=== PATIENT | female | born 1975 | race Caucasian/White ===

== ENCOUNTER 2022-09-10 07:30 | Day surgery (SDC) | payer BC, SELFPAY ==
[2022-09-10] VITALS (14 sets, daily range): BP systolic 114–144; BP diastolic 71–99; PULSE 68–112; RESP 12–19; TEMP 36.4–36.6; O2SAT 93–99; BMI 28.1
[2022-09-10] MEDS: LACTATED RINGERS 1000 ML 1,000 ML 100 ML IV (07:00)
[2022-09-10 08:05] LABS: HCG Qualitative* Negative (Negative)
[2022-09-10] MEDS: SODIUM CHLORIDE 0.9 % (FLUSH) 10 ML SYRINGE IVF (08:14)
[2022-09-10] MEDS: MIDAZOLAM HCL 1 MG/ML inj IVP (09:01)
[2022-09-10] MEDS: fentaNYL 100 MCG/2 ML inj IVP (09:01)
--- NOTE | 2022-09-10 09:08 | SUR.PREOP ---
TIME?OUT:?0900 PT/RN/MDA?VERIFICATION?OF?SURGICAL?SITE Right Shoulder,?PROCEDURE Nerve Block,?AND?CONSENT OBTAINED?PRIOR?TO?INVASIVE?PROCEDURE.
--- NOTE | 2022-09-10 09:08 | W.PM.NB ---
Nerve Block Nerve Block Time Seen by Provider: 09:03 Date Seen: 09/10/22 Type of block requested by surgeon for post-operative analgesia: supraclavicular Side: right Time out performed: Yes Verification of patient name: Yes Verification of date of : Yes Site marking: site marked Name of person performing procedure: Mike Continuous monitoring Was continuous monitoring of O2 sat, B/P, buggy ladle tender, recorded every 15 minutes?: Yes Procedure Checklist: sterile prep, needles and gloves Ultrasound guided. Images saved: Yes Medications given in 5ml increments after negative aspiration: Ropivicaine %: 0.5 mL: 20 Needle gauge: 22 Decadron (mg): 10 Precedex (mcg): 25 Patient tolerated procedure well: Yes Block Charges Block Charge (with Pro Fee): Brachial Plexus Use of Ultrasound Machine for Block: Yes- US Guidance/pain block
[2022-09-10] MEDS: CEFAZOLIN 2 GM in 0.9 % SODIUM CHLORIDE Mini-bag 100 ML IVPB (10:37)
[2022-09-10] MEDS: EPINEPHrine 1 MG in SODIUM CHLORIDE IRRIG SOLUTION 3,000 ML 15005 MG IRRIGATION (10:58)
--- NOTE | 2022-09-10 12:16 | P.ORPRC_ITS ---
Procedure Note Date of procedure: 09/10/22 Procedure: PREOPERATIVE DIAGNOSES: 1. Right shoulder rotator cuff tear. 2. Right shoulder AC degenerative joint disease, primary, moderate-severe 3. Right shoulder long head of biceps partial-thickness tearing 4. Right shoulder subacromial impingement syndrome. POSTOPERATIVE DIAGNOSES: 1. Right shoulder rotator cuff tear (full-thickness supraspinatus and anterior portion infraspinatus) 2. Right shoulder AC degenerative joint disease, primary, moderate-severe 3. Right shoulder long head of biceps partial-thickness tearing 4. Right shoulder anterior and superior degenerative labral fraying and tearing, biceps fraying, subscapularis upper border tearing near 4. Right shoulder subacromial impingement syndrome. NAME OF OPERATION: 1. Right shoulder arthroscopic rotator cuff repair (upper border subscapularis and full-thickness supraspinatus/anterior infraspinatus) 2. Right shoulder arthroscopic distal clavicle excision 3. Right shoulder arthroscopic extensive glenohumeral debridement 4. Right shoulder arthroscopic bursectomy, subacromial decompression/partial acromioplasty. SURGEON: Cedric Smith MD SOFTWARE ENGINEER WEB SERVICES: Woody Badillo PA-C. Of note, a skilled emergency room physician assistant was critical for this case to aide in patient positioning, suture manipulation, arm positioning, instrument positioning, and closure. ANESTHESIA: General plus preoperative supraclavicular block. EBL: Less than 50 mL IMPLANTS: Arthrex 2.6 mm FiberTak RC 0 (x2); 4.75 mm BioComposite SwiveLock suture anchor (x1); 5.5 mm BioComposite SwiveLock suture anchor (x2) COMPLICATIONS: None evident INDICATIONS: The patient is a pleasant, 47-year-old female who has experienced right shoulder pain that has been increasing in recent time. Physical exam and imaging were consistent with a rotator cuff tear. Given their findings, as well as the weakness and pain, and inadequate response to nonoperative management, recommendation was made for surgery. FINDINGS: Exam under anesthesia revealed stable shoulder with excellent range of motion. The diagnostic arthroscopy revealed grade 2 chondromalacia glenoid. The Subscapularis tendon was torn from its upper border with mild retraction. The long head of the biceps tendon was overall intact without significant te aring. It did have some tenosynovitis surrounding it that was debrided. The superior rotator cuff tendon was found to be torn full-thickness the entire supraspinatus and anterior portion of the infraspinatus. The labrum was degeneratively frayed in the anterior and superior aspects. No loose bodies were identified within the pouch or subscapularis recess. PROCEDURE: Following a thorough discussion of risks, benefits, and alternatives, consent was obtained and the right shoulder was marked. The patient was brought to the operating room and placed supine on the operating table. Induction of anesthesia was completed after preoperative supraclavicular block was administered in preop holding. Appropriate time out was performed identifying proper patient, site, and procedure. 2 g IV Ancef was administered within 1 hour of incision preoperatively. The right upper extremity was prepped and draped in the appropriate sterile fashion using ChloraPrep prep. This was after the patient was positioned in the beach chair with their head in neutral alignment and all bony prominences well padded. The shoulder was insufflated with 20mL of normal saline via an 18g spinal needle from a posterior approach. An 11 blade skin incision allowed a blunt trochar to be inserted and diagnostic arthroscopy to be performed with the findings as noted above. An anterior portal was established with an outside in technique. This allowed the probe to be inserted and confirm the diagnostic arthroscopic findings. The shaver was then inserted and allowed debridement of the anterior and superior labrum as well as the 3rd biceps tenosynovitis and glenoid loose chondral tissue/flaps in addition to the subscapularis the right and lesser tuberosity bone and greater tuberosity bone. Following this, the upper border subscapularis was repaired after debriding the lesser tuberosity with the shaver and [place] cautery. Subscapularis was captured in horizontal mattress fashion with a fiber tape suture. The tails were brought to a single anchor in the lesser tuberosity with excellent reapproximation of the subscap tendon and good excursion/tension. Thereafter, the subacromial space was entered. Here, a complete bursectomy and partial acromioplasty/subacromial decompression was performed with a combination of radiofrequency ablator, the shaver, and a 5.5 mm bur. Additionally, distal clavicle excision was performed with the bur. 8 mm of distal clavicle was resected based on the with of our bur. Further inspection of the supraspinatus and infraspinatus rotator cuff was performed. This identified the tear as noted above. The margins of the tear were debrided, and the greater tuberosity was debrided with a combination of the apollo cautery, shaver, and bur on reverse setting. After gentle decortication, a speed bridge configuration with a medial luis was engaged. 2 medial anchors were placed and the sutures were passed with a fiber link. The eyelet suture tails were then retrieved and tied and cinched down for the medial luis purpose. A tail from each of the medial row anchor FiberTapes were then brought to a lateral row anchor along with 1 of the tails from the medial luis. Excellent reapproximation of the tissue to the greater tuberosity was achieved with broad footprint compression. Prior to anchor national dedicated truck driver removal, the eyelet sutures were tugged on for each anchor and found that the anchor had excellent stability within the bone. The shoulder was placed through range of motion and found to be stable. The rotator cuff was re-probed and found to be stable. Instruments were removed. Excess fluid was drained, closure performed with 4-0 Monocryl and Steri-Strips. Dressings were applied. Sling was applied. The patient was awoken from anesthesia and transferred to the PACU in stable condition. A skilled emergency room physician assistant was critical for this case to aid in patient positioning, limb positioning, skill to manipulate arthroscopic instruments and camera, suture management, patient safety, and closure. PLAN: 1. Elbow, forearm, wrist and digit range of motion as tolerated. 2. Encouraged ice. 3. Percocet for pain as needed. 4. Sling at all times except for ROM and showering. 5. Follow up with PA visit in 1-2 weeks for wound check. Initiate physical therapy following that visit for passive range of motion. Initiate active assisted range of motion at 3-4 weeks depending on tear size. May do pendulums now.
--- NOTE | 2022-09-10 12:32 | W.ANESCHARGE ---
Anesthesia Charges Start Date/Time Anesthesia Start Date: 09/10/22 Anesthesia Start Time: 10:26 Stop Date/Time Anesthesia Stop Date: 09/10/22 Anesthesia Stop Time: 12:37 Summary Emergency: No
--- NOTE | 2022-09-10 12:42 | W.ANESCHARGE ---
Anesthesia Charges Start Date/Time Anesthesia Start Date: 09/10/22 Anesthesia Start Time: 10:26 Stop Date/Time Anesthesia Stop Date: 09/10/22 Anesthesia Stop Time: 12:37 Summary Emergency: No
--- NOTE | 2022-09-10 14:36 | SUR.PHASEII ---
Pt verbalized readiness to be discharged and understanding of discharge instructions.
--- NOTE | 2022-09-10 14:46 | SUR.PHASEII ---
Pt stable upon discharge
== END 2022-09-10 14:34 | disposition home or self-care (01) ==
PROVIDERS: Anesthesiology; PCP Physician Assistant Medical; Visit Provider Orthopaedic Surgery Sports Medicine
PROC: (CPT 29805; principal; 2022-09-10 09:00)
DX: M75.121 Complete rotator cuff tear or rupture of right shoulder, not specified as traumatic (principal); M19.011 Primary osteoarthritis, right shoulder; S46.111A Strain of muscle, fascia and tendon of long head of biceps, right arm, initial encounter; S43.431A Superior glenoid labrum lesion of right shoulder, initial encounter; M75.41 Impingement syndrome of right shoulder
CPT/HCPCS: 29827; 29826; 29823; 29824; 01630; 64415; 76942; 84703; C1713; J0171; J0330; J0690; J1100; J2250; J2405; J2704; J2795; J3010; J7120; L3670

== ENCOUNTER 2023-06-18 10:04 | Outpatient (CLI) | payer BC, SELFPAY ==
--- NOTE | 2023-06-18 10:15 | MR_ITS ---
[address] [address] Phone:?[phone] Fax:?[phone] Referring Physician Information: Cedric Smith M.D. [id number] [facility] [address] Phone:?[phone] Fax:?[phone] Patient:Bryce Leyva D.O.B:?1975 Sex:?Female Phone:?[phone] [facility] MRN:?[id number] Exam Date:?06/18/2023 EXAM: MRI of the RIGHT SHOULDER, without contrast CLINICAL HISTORY: Right shoulder pain. History of previous right shoulder surgery. Suspect recurrent rotator cuff tear. COMPARISONS: Plain radiographs 05/28/2023. MRI 08/04/2022. TECHNICAL: MRI sequences of the right shoulder: Axials: PD, T2 Coronals: PD, STIR, T2 Sagittals: PD, T2 SEDATION: None CONTRAST: None FINDINGS: Bones: No fracture or suspicious bone marrow signal abnormality. Coracoacromial arch: Acromion: No os acromiale. Surgical changes status post acromioplasty. Acromiohumeral space: The bony distance is unremarkable. Coracohumeral space: The bony distance is unremarkable. Acromioclavicular joint: Surgical changes status post distal clavicular resection. Coracoclavicular ligament: The coracoclavicular ligament is intact. Rotator cuff muscles/tendons: Supraspinatus and infraspinatus: There are surgical changes status post rotator cuff repair. The supraspinatus and infraspinatus tendons are within normal postoperative limits. There is mild to moderate atrophy of the infraspinatus muscle, not progressed compared to previous MRI 08/04/2022. There is no atrophy of the supraspinatus muscle. Teres minor: The teres minor tendon and muscle are intact. Subscapularis: There are surgical changes status post rotator cuff repair. A 0.5 cm in craniocaudad dimension by 1.5 cm in transverse dimension concealed split longitudinal intrasubstance/interstitial tear within the superior portion of the subscapularis tendon was not seen on previous MRI 08/04/2022. No articular or bursal surfacing tear is seen. No muscular atrophy. Labrum and glenohumeral joint: There is posterosuperior labral fraying. Moderate glenohumeral joint effusion with substantial synovitis. No discrete chondral defect or subchondral bone marrow edema/cystic change is seen. No convincing evidence of capsular edema or thickening although evaluation is suboptimal because of lack of joint distention. Proximal biceps tendon, long head and short heads: The long and short heads of the proximal biceps tendon are intact. Bursae: Subacromial/subdeltoid: Moderate bursitis. Subcoracoid: No convincing subcoracoid bursal thickening/bursitis. IMPRESSION: 1. Surgical changes status post rotator cuff repair, acromioplasty, and distal clavicular resection. The supraspinatus and infraspinatus tendons are within normal postoperative limits. 2. 0.5 x 1.5 cm concealed split longitudinal intrasubstance/interstitial tear within the superior portion of the subscapularis tendon, not seen on previous MRI 08/04/2022. No articular or bursal surfacing subscapularis tendon tear. 3. Mild to moderate atrophy of the infraspinatus muscle, not progressed compared to previous MRI 08/04/2022. No atrophy of the supraspinatus, subscapularis, or teres minor muscles. 4. Moderate glenohumeral joint effusion with substantial synovitis. 5. Moderate subacromial/subdeltoid bursitis. 6. Posterosuperior labral fraying. 7. Intact biceps tendon. RCB Electronically signed on 06/18/2023 1:13:00 PM by John Barnhart M.D.
== END 2023-06-18 10:05 | disposition home or self-care (01) ==
LOC: MRI 10:04
PROVIDERS: PCP Family Medicine; Visit Provider Orthopaedic Surgery Sports Medicine
DX: M25.511 Pain in right shoulder (principal); M75.101 Unspecified rotator cuff tear or rupture of right shoulder, not specified as traumatic; S46.211A Strain of muscle, fascia and tendon of other parts of biceps, right arm, initial encounter; M25.411 Effusion, right shoulder; M75.51 Bursitis of right shoulder
CPT/HCPCS: 73221